=== PATIENT | female | born 1950 | race Caucasian/White ===

== ENCOUNTER → 2017-10-02 08:58 | Outpatient (CLI) | payer MEDICARE, SELFPAY ==
--- NOTE | 2017-10-02 13:42 | PFT ---
INTRODUCTION: The patient is a 67-year-old female currently under the care of Dr. Jerez that presents for pulmonary function testing secondary to a diagnosis of asthma. Respiratory therapy reports good patient effort and reports no other concerns. Bronchodilators were used during testing. INTERPRETATION: Forced expiration spirometry demonstrates the presence of a moderate large airways obstructive ventilatory defect. There was significant response to aerosolized bronchodilators noted in both FVC and FEV1. Spirograms are of good quality and plateau gradually indicating slow emptying of the lungs. Body plethysmography was performed and reveals lung volumes to be within normal limits. Diffusing capacity by single breath CO is mildly reduced at 70% of predicted. When compared to previous pulmonary function studies dated August 2016 there has been a 13% decrease in the patient's FEV1. IMPRESSION: These pulmonary function studies demonstrate the presence of a partially reversible moderate large airways obstructive ventilatory defect with an associated mild reduction in diffusing capacity. There has been a 13% decrease in the patient's FEV1 since PFTs were last completed in August 2016.
== END ==
PROVIDERS: Family Provider Family Medicine; PCP Family Medicine; Visit Provider Internal Medicine Critical Care Medicine
DX: J45.40 Moderate persistent asthma, uncomplicated (principal)
CPT/HCPCS: 94060; 94726; 94729

== ENCOUNTER → 2018-09-19 07:13 | Outpatient (CLI) | payer MEDICARE, SELFPAY ==
[2018-04-16 10:18] VITALS: BMI 36.1
--- NOTE | 2018-09-19 12:53 | PFT ---
INTRODUCTION: The patient is a 68-year-old female that presents for pulmonary function studies secondary to a diagnosis of shortness of breath. Respiratory therapy reports good patient effort. Bronchodilators were used during testing. INTERPRETATION: Forced expiration spirometry demonstrates the presence of a moderate large airways obstructive ventilatory defect. There was a partial, albeit nonsignificant, response to aerosolized bronchodilators. Spirograms are of good quality and do not plateau indicating slow emptying of the lungs. Body plethysmography was performed and reveals lung volumes to be within normal limits. Diffusing capacity by single breath CO is moderately reduced at 58% of predicted. When compared to previous pulmonary function studies dated September 2017 there has been an 18% reduction in DLCO. IMPRESSION: Irreversible moderate large airways obstructive ventilatory defect with an associated symmetric reduction in diffusing capacity.
== END ==
PROVIDERS: Family Provider Family Medicine; PCP Family Medicine; Referring Provider Nurse Practitioner Acute Care; Visit Provider Nurse Practitioner Acute Care
DX: J45.40 Moderate persistent asthma, uncomplicated (principal)
CPT/HCPCS: 94060; 94726; 94729

== ENCOUNTER → 2018-09-24 10:32 | Outpatient (CLI) | payer MEDICARE, SELFPAY ==
[2018-04-16 10:18] VITALS: BMI 36.1
[2018-09-24 10:57] VITALS: PULSE 89; PULSE 93; PULSE 94; PULSE 95; PULSE 96; PULSE 97; O2SAT 89; O2SAT 92; O2SAT 93; O2SAT 94; O2SAT 97
--- NOTE | 2018-09-24 15:01 | PCM.PSN.6M ---
PSN 6 Minute Walk Test - 6 Minute Walk Test 6 Minute Walk Test: 6 Minute Walk Test PSN:6-Minute Walk Test Start: 09/24/18 10:57 Freq: Status: Active Protocol: RESP.6MINW Document 09/24/18 10:57 RINA (Rec: 09/24/18 11:01 RIAN [id number]) 6 Minute Walk Test Date Performed 09/24/18 Time Performed 11:00 Height 5 ft 3 in Weight: 94.347 kg Weight in Pounds 208.[address]: Sher Jerez Assistive device used: None Pre-test Oxygen Delivery Method Room Air Pulse Ox (%) 94 Pulse Rate (60-100 beats/min) 94 Dyspnea Iqra Scale (0-10) 6 1st minute Oxygen Delivery Method Room Air Pulse Ox (%) 93 Pulse Rate (60-100 beats/min) 93 2nd minute Oxygen Delivery Method Room Air Pulse Ox (%) 92 Pulse Rate (60-100 beats/min) 96 3rd minute Oxygen Delivery Method Room Air Pulse Ox (%) 89 Pulse Rate (60-100 beats/min) 97 4th minute Oxygen Delivery Method Room Air Pulse Ox (%) 92 Pulse Rate (60-100 beats/min) 97 5th minute Oxygen Delivery Method Room Air Pulse Ox (%) 93 Pulse Rate (60-100 beats/min) 95 6th minute Oxygen Delivery Method Room Air Pulse Ox (%) 94 Pulse Rate (60-100 beats/min) 96 Dyspnea Iqra Scale (0-10) 1 Exertion Iqra Scale (6-20) 11 Post-test Oxygen Delivery Method Room Air Pulse Ox (%) 97 Pulse Rate (60-100 beats/min) 89 Full Laps Walked 17 Partial Lap, Number of Tiles Walked 20 Total Distance Walked (ft) 1023 - Interpretation Interpretation: The patient was able to ambulate 1023 feet over the course of 6 minutes on room air with no assistive devices or breaks. The patient did have significant desaturation as low as 89% without significant tachycardia. These findings are consistent with a respiratory limitation exercise tolerance. - Recommendations Recommendations: No supplemental oxygen is indicated at this time. However, patient will need to be followed closely given level of desaturation.
== END ==
PROVIDERS: Family Provider Family Medicine; PCP Family Medicine; Referring Provider Nurse Practitioner Acute Care; Visit Provider Nurse Practitioner Acute Care
DX: R06.02 Shortness of breath (principal)
CPT/HCPCS: 94618

== ENCOUNTER → 2018-10-02 10:23 | Outpatient (CLI) | payer MEDICARE, SELFPAY ==
[2018-10-02 09:40] VITALS: BMI 36.8
[2018-10-02 10:57] LABS: Absolute Lymphocyte Count 2.35 X10^3/ul (0.83-4.51); Absolute Neutrophil Count 3.9 X10^3/uL (2.0-7.7); Basophil# 0.08 X10^3/uL; Eosinophil# 1.07 X10^3/uL; Eosinophils% 13.3 % (0-5); Hematocrit 45.2 % (37-47); Hemoglobin 14.8 g/dl (12.0-15.0); Lymphocyte # 2.35 X10^3/ul (4.0); Lymphocyte % 29.1 % (19-41); Mean Corp Hgb Conc 32.7 g/gl (32-36); Mean Corpuscular Hgb 28.6 pg (27.0-32.0); Mean Corpuscular Volume 87.4 fL (81-99); Mean Platelet Vol. 9.3 fl (6.2-12.0); Monocyte% 8.7 % (0-10); Neutrophil # 3.86 X10^3/uL (2.7-7.7); Neutrophil % 47.8 % (47-70); Platelet Count 318 K/mm3 (150-450); RBC Distribution Width CV 14.8 % (11.6-14.6); RBC Distribution Width SD 47.4 fl (35.1-43.9); Red Blood Count 5.17 M/mm3 (4.2-5.4); White Blood Count 8.1 K/mm3 (4.4-11.0)
[2018-10-02 10:59] LABS: POSITIVE COUNT NO; POSITIVE DIFFERENTIAL NO; POSITIVE MORPHOLOGY NO
== END ==
PROVIDERS: Family Provider Family Medicine; PCP Family Medicine; Referring Provider Internal Medicine Critical Care Medicine; Visit Provider Internal Medicine Critical Care Medicine
DX: J45.40 Moderate persistent asthma, uncomplicated (principal)
CPT/HCPCS: 36415; 85025

== ENCOUNTER → 2019-10-31 06:56 | Outpatient (CLI) | payer MEDICARE, SELFPAY ==
[2019-05-05 11:24] VITALS: BMI 36.8
--- NOTE | 2019-10-31 10:12 | PFT ---
INTRODUCTION: The patient is a 69-year-old female that presents for pulmonary function studies secondary to a diagnosis of asthma. Respiratory therapy reports good patient effort. Bronchodilators were used during testing. INTERPRETATION: Forced expiration spirometry demonstrates no evidence of a large airways obstructive ventilatory defect. There was a partial, albeit technically nonsignificant, response to aerosolized bronchodilators. Spirograms are of good quality and plateau normally. Body plethysmography was performed and reveals lung volumes to be within normal limits. Diffusing capacity by single breath CO is also within normal limits. When compared to previous pulmonary function studies from August 2018, there has been a significant improvement in FEV1 and DLCO. IMPRESSION: Subtle findings of possible small airways disease with partial, albeit technically nonsignificant, response to aerosolized bronchodilators. There has been improvement in the patient's PFT since 2018, as noted above.
== END ==
PROVIDERS: PCP Family Medicine; Referring Provider Nurse Practitioner Acute Care; Visit Provider Nurse Practitioner Acute Care
DX: J45.909 Unspecified asthma, uncomplicated (principal)
CPT/HCPCS: 94060; 94726; 94729

== ENCOUNTER → 2025-02-06 | Outpatient (CLI) | payer MEDICARE, SELFPAY ==
[2025-02-06 18:59] LABS: AST(SGOT) 28 U/L (<=31); Alanine Aminotransfer ALT/SGPT 22 U/L (<=34); Albumin, Serum 4.2 g/dL (3.4-4.8); Alkaline Phosphatase 95 U/L (35-104); Anion Gap 13 (5-15); BUN 17 mg/dL (4-19); BUN/Creat Ratio 25.0 RATIO (10-20); Calcium,Total 9.9 mg/dL (7.6-11.0); Carbon Dioxide 23.6 mmol/L (21.0-32.0); Chloride 101 mmol/L (98-108); Globulin 3.4 g/dL (2.2-4.2); Glucose 89 mg/dL (70-99); Hepatitis B Surface Antigen Nonreactive (Nonreactive); Hepatitis C Antibody Nonreactive (Nonreactive); Potassium 4.1 mmol/L (3.3-5.1)
[2025-02-06 19:02] LABS: Hematocrit 42.3 % (37-47); Hemoglobin 13.7 g/dL (12.0-15.0); Immature Granulocytes Count 0.020 X10^3/uL (0.0-0.0); Mean Corp Hgb Conc 32.4 g/dL (32-36); Mean Corpuscular Volume 89.1 fL (81-99); Mean Platelet Vol. 10.5 fl (6.2-12.0); NRBC Flagged by Analyzer 0 % (0-5); Platelet Count 358 K/mm3 (150-450); RBC Distribution Width CV 14.4 % (11.6-14.6); RBC Distribution Width SD 46.7 fl (35.1-43.9); Red Blood Count 4.75 M/mm3 (4.2-5.4); White Blood Count 7.4 K/mm3 (4.4-11.0)
[2025-02-06 19:11] LABS: CRP 7.79 mg/L (0.0-3.0)
== END | disposition home or self-care (01) ==
LOC: MTLAB 14:31
PROVIDERS: PCP Family Medicine; Referring Provider Internal Medicine Rheumatology; Visit Provider Internal Medicine Rheumatology
DX: M06.4 Inflammatory polyarthropathy (principal); J45.909 Unspecified asthma, uncomplicated
CPT/HCPCS: 36415; 80053; 85025; 85652; 86140; 86200; 86431; 86706; 86803; 87340

== ENCOUNTER → 2025-04-07 | Outpatient (CLI) | payer MEDICARE, SELFPAY ==
--- NOTE | 2025-04-07 07:30 | SAL_PTH ---
PATIENT: OCTAVIA GRANADOS LOC: [facility] U#:[id number] AGE/SX: 74/F ROOM: RE04/07/[address]: Dr. Khoa Manzanares MD : [id number] BED: DIS: 04/07/2025 SPEC #: [id number] RECD: 04/07/25 14:48 STATUS: JOSLYN REQ #: [id number] EMMY: 04/07/25 07:[address]: Khoa Manzanares DEPT: SURGICAL PATHOLOGY RECD BY: Jose Ferrara ENTERED: 04/07/25 16:04 SP TYPE: ADRIA TALBOT DR: Dr. Todd Fernandez MD Tissues: A - Salivary gland, NOS B - Salivary gland, NOS Procedures: Surgery Specimen Level IV HEADER OPERATION: Lower lip local anesthesia PRE-OP DIAGNOSIS: Disturbance of salivary secretion, Sjogren syndrome with inflammatory arthritis TISSUE SUBMITTED: A- Lower lip #1, B- Lower lip #2 MICROSCOPIC DIAGNOSIS A. Minor salivary gland, lower lip, biopsy, #1: - Mild nonspecific chronic inflammation - see Comment. B. Minor salivary gland, lip lower, biopsy, #2: - Mild nonspecific chronic inflammation - see Comment. COMMENT: Focal lymphoid aggregates including > 50 lymphocytes are not observed. MICROSCOPIC DESCRIPTION Slides are reviewed. GROSS DESCRIPTION Received in 2 formalin containers labeled with the patient's name and date of . Designated as: A. #1 minor salivary gland-evaluate for Sjorgens syndrome is a 0.3 x 0.2 x 0.1 cm rangel tissue fragment. Entirely submitted in 1 cassette. B. #2 minor salivary gland-evaluate for Sjorgens syndrome is a 0.6 x 0.5 x 0.2 cm aggregate of rangel lobulated tissue fragments. Entirely submitted in 1 cassette. NV 04/07/2025 CPT:14278r4
== END | disposition home or self-care (01) ==
LOC: LABSPEC 15:57
PROVIDERS: PCP Family Medicine; Referring Provider Otolaryngology; Visit Provider Otolaryngology
DX: K11.7 Disturbances of salivary secretion (principal); M35.00 Sjogren syndrome, unspecified; M13.80 Other specified arthritis, unspecified site
CPT/HCPCS: 88305